=== PATIENT | male | born 1975 ===

== ENCOUNTER 2021-09-17 20:39 | Emergency (ER) | payer BC ==
[2021-09-17 21:33] VITALS: BP 128/85; PULSE 61; RESP 20; TEMP 98.1
--- NOTE | 2021-09-17 22:41 | XR ---
EXAMINATION TYPE: XR finger LT DATE OF EXAM: 09/17/2021 COMPARISON: NONE HISTORY: Pain and laceration TECHNIQUE: 3 views FINDINGS: There is some soft tissue deformity at the tip of the index finger left hand. No foreign farrah dy seen. No fracture seen. IMPRESSION: Laceration deformity. No fracture seen.
[2021-09-17] MEDS ORDERED: LIDOCAINE 1% INJ 10MG/ML (5 ML VIAL-PF) SQ ONE (22:50)
[2021-09-17] MEDS ORDERED: CEPHALEXIN 500MG STARTER PACK 4 CAP BTL PO STA (23:07)
--- NOTE | 2021-09-17 23:18 | ED ---
Wound/Laceration HPI - General Chief Complaint: Wound/Laceration Stated Complaint: Lt Index Finger Laceration Time Seen by Provider: 09/17/21 22:45 Source: patient, RN notes reviewed Mode of arrival: ambulatory Limitations: no limitations - History of Present Illness Initial Comments: [id number] male who inadvertently cut his left index finger with an ax. No headache, no fever or chills, no changes in vision or hearing, no sore throat or difficulty with speech, no neck pain, no chest pain or shortness of breath, no abdominal pain, no nausea or vomiting, no changes in urination or bowel movements, no numbness or tingling, no skin rashes or lesions. - Related Data Previous Rx's Medication Instructions Recorded Cephalexin [Keflex] 500 mg PO Q8H #15 cap 09/17/21 Allergies Allergy/AdvReac Type Severity Reaction Status Date / Time No Known Allergies Allergy Verified 09/17/21 21:33 Review of Systems ROS Statement: Those systems with pertinent positive or pertinent negative responses have been documented in the HPI. ROS Other: All systems not noted in ROS Statement are negative. Past Medical History Past Medical History: No Reported History History of Any Multi-Drug Resistant Organisms: None Reported Past Surgical History: Orthopedic Surgery Past Psychological History: No Psychological Hx Reported Smoking Status: Never smoker Past Alcohol Use History: None Reported Past Drug Use History: None Reported General Exam Limitations: no limitations Course Vital Signs 09/17/21 21:30 Temperature 98.1 F Pulse Rate 61 Respiratory 20 Rate Blood Pressure 128/85 O2 Sat by Pulse 97 Oximetry Procedures - Laceration Laceration #1 Consent Obtained: verbal consent Indication: laceration Site: upper extremity (Left index finger) Size (cm): 4 Description: flap Depth: simple, single layer Anesthetic Used: lidocaine 1% Anesthesia Technique: nerve block (Digital block) Amount (mls): 3 Pre-repair: wound explored, irrigated extensively, deep structures intact Type of Sutures: nylon Size of Sutures: 5-0 Number of Sutures: 7 Technique: simple, interrupted Patient Tolerated Procedure: well, no complications Additional Comments: Flap was somewhat devitalized portions. However there seemed to be a good bridge of vascularity. Attempt was made to save the skin flap. Patient counseled on possible devitalization. Medical Decision Making - Medical Decision Making Patient counseled on wound care. Counseled on signs and symptoms of infection. Cephalexin for prophylaxis. X-rays were reviewed by me. Patient does have a tiny avulsion fracture noted on x-ray. This was read as negative by radiology. However given the findings I believe patient does have a small open fracture. We will treat with prophylactic antibiotics. Patient to follow-up with his regular physician. Patient notified. Patient was told to return to the ER for any signs or symptoms worsen. Told to return immediately if any other problems arise. All questions answered. Treatment plan discussed. Patient in agreement Every effort has been made to ensure accuracy of this dictation. However, due to the limitations of electronic medical records and dictation devices, errors in charting still occur. Varnishing Machine Operator Dr. Palafox Disposition Clinical Impression: Laceration of left index finger with damage to nail, Open fracture of distal phalanx of left index finger Narrative: Tiny avulsion fracture of the distal tuft Disposition: HOME SELF-CARE Condition: Good Instructions (If sedation given, give patient instructions): Laceration (ED) Additional Instructions: Suture removal in 10 days. Wash the wound daily with warm soap and water. Apply antibiotic ointment such as Neosporin or triple antibiotic ointment. Keep covered with a sterile bandage or Band-Aid. Follow-up with your regular physician as directed. Return to the ER immediately if any symptoms worsen, new symptoms arise, or any other problems develop. Is patient prescribed a controlled substance at d/c from ED?: No Referrals: None,Stated [Primary Care Provider] - 1-2 days Time of Disposition: 23:19
== END 2021-09-17 23:32 | disposition home or self-care (01) ==
LOC: EC 20:39
DX: S62.631A Displaced fracture of distal phalanx of left index finger, initial encounter for closed fracture (principal); W27.0XXA Contact with workbench tool, initial encounter
CPT/HCPCS: 73140; 12002; 99283; J2001